=== PATIENT | female | born 1995 | race African-American/Black ===

== ENCOUNTER 2020-12-24 12:29 | Outpatient (CLI) | payer MEDICARE, MEDICAID | END 2020-12-24 12:30 | disposition home or self-care (01) | LOC: TBSIIMAG 12:29 | PROVIDERS: ATTEND Surgery | DX: M54.5 Low back pain (principal); R20.2 Paresthesia of skin; M51.36 Other intervertebral disc degeneration, lumbar region; Z98.890 Other specified postprocedural states | CPT/HCPCS: 72110; 72148 ==

== ENCOUNTER 2025-02-10 18:10 | Emergency (ER) | payer MEDICARE, OTHER | END 2025-02-10 20:15 | disposition home or self-care (01) | LOC: ERS 18:10 | DX: S83.92XA Sprain of unspecified site of left knee, initial encounter (principal); F17.210 Nicotine dependence, cigarettes, uncomplicated; F17.290 Nicotine dependence, other tobacco product, uncomplicated; W17.89XA Other fall from one level to another, initial encounter | CPT/HCPCS: 99283 ==